=== PATIENT | male | born 1990 | race Caucasian/White ===

== ENCOUNTER 2022-09-01 05:55 | Emergency (ER) | payer BC, SELFPAY ==
[2022-09-01 06:03] VITALS: BP 167/104; PULSE 80; RESP 18; TEMP 36.1; O2SAT 96
--- NOTE | 2022-09-01 06:18 | ED.EXTPRO ---
HPI - Extremity Problem General Chief complaint: Extremity Problem,Nontraumatic Stated complaint: right leg pain Time Seen by Provider: 09/01/22 06:17 History of Present Illness HPI Narrative: This is a 32-year-old male who denies past medical history, presenting the emergency department complaining of cramping pain in the distal right foreleg, with concern for DVT. Patient states he has increased physical activity including playing hockey, skating and running (which is unusual for him). Last night he noted cramping pain in the right foreleg and with his mother's history of DVTs he became concerned for blood clot. He has no other concerns today. Related Data Allergies Allergy/AdvReac Type Severity Reaction Status Date / Time No Known Allergies Allergy Unverified 08/01/16 00:06 Review of Systems Review of Systems: CONSTITUTIONAL: Denies fever, chills, or sweats. CARDIOVASCULAR: Denies chest pain, palpitations, or edema. RESPIRATORY: Denies cough or dyspnea. GASTROINTESTINAL: Denies abdominal pain, nausea, vomiting, or diarrhea. GENITOURINARY: Denies dysuria or hematuria. SKIN: Denies rash or itching. MUSCULOSKELETAL: Right leg pain, back pain, joint pain NEUROLOGIC: Denies headache, numbness, dizziness, or weakness. PSYCHIATRIC: Denies anxiety or depression. [facility] Family History Family History (Updated 09/01/22 @ 06:33 by Sal Hassan MD) Other DVT (deep venous thrombosis) Social History Social History (Updated 09/01/22 @ 06:34 by Sal Hassan MD) Smoking status: Never smoker Alcohol intake: never Substance use: never Exam Narrative: GENERAL: Well-appearing, well-nourished, and in no acute distress. HEAD: Normocephalic, atraumatic. EYES: PERRLA and EOMI. ENT: Nares clear, no rhinorrhea or epistaxis. Mucous membranes moist. Oropharynx without tonsillar hypertrophy exudate or other lesions. NECK: Supple. No adenopathy or masses. No carotid bruits or JVD CHEST: Clear to auscultation. No respiratory distress. No wheezes rales or rhonchi HEART: Regular rate and rhythm. No murmur heard. Normal peripheral pulses. ABDOMEN: Soft, nontender, nondistended, normal active bowel sounds. EXTREMITIES: Minimal tenderness to palpation over the anterior medial aspect of the right foreleg approximately 15 cm proximal to the ankle without erythema or induration, normal range of motion. No edema. SKIN: Warm, dry, no rash. NEURO: No focal deficits. Alert and oriented x3. PSYCH: Normal mood and affect. Course Vital Signs Vital signs: Vital Signs Temperature 96.9 F L 09/01/22 06:03 Pulse Rate 80 09/01/22 06:03 Respiratory Rate 18 09/01/22 06:03 Blood Pressure 167/104 H 09/01/22 06:03 Pulse Oximetry 96 09/01/22 06:03 Temperature 96.9 F L 09/01/22 06:03 Pulse Rate 80 09/01/22 06:03 Respiratory Rate 18 09/01/22 06:03 Blood Pressure 167/104 H 09/01/22 06:03 Pulse Oximetry 96 09/01/22 06:03 Procedures Other Procedure Procedure 1: Other Procedure: Bedside ultrasound for DVT performed on the right lower extremity. The femoral and deep femoral veins of the right leg are compressible, the popliteal vein and distal veins of the posterior calf are compressible. An approximate 5 cm noncompressible section of a superficial vein 0.5 cm below the skin, in the area of the patient's tenderness, is noted. There is no noted cobblestoning or mass concerning for cellulitis versus abscess. MDM - Extremity (Nontraumatic) MDM Narrative Medical decision making narrative: Plan: Bedside ultrasound, reassess Differential Diagnosis Differential diagnosis: Likely cellulitis, superficial thrombophlebitis, deep vein thrombosis of lower extremity and other Discharge Plan Discharge Clinical Impression: Superficial thrombophlebitis, Elevated blood pressure reading, Acute pain of right lower extremity Patient Disposition: Home, Self-Care Condition: Stable Instructions: Antibi
== END 2022-09-01 06:33 | disposition home or self-care (01) ==
LOC: ANHED 06:26
PROVIDERS: Emergency Provider Preventive Medicine Aerospace Medicine; PCP Family Medicine Sports Medicine
DX: I80.01 Phlebitis and thrombophlebitis of superficial vessels of right lower extremity (principal); R03.0 Elevated blood-pressure reading, without diagnosis of hypertension; M79.661 Pain in right lower leg
CPT/HCPCS: 99282